=== PATIENT | female | born 1995 | race Two or more races ===

== ENCOUNTER 2018-03-26 05:45 | Emergency (ER) | payer MEDICAID ==
[2018-03-26 05:50] VITALS: BP 124/79
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
== END 2018-03-26 06:26 | disposition home or self-care (01) ==
DX: S62.332A Displaced fracture of neck of third metacarpal bone, right hand, initial encounter for closed fracture (principal); Y04.8XXA Assault by other bodily force, initial encounter; Y92.89 Other specified places as the place of occurrence of the external cause; Y99.8 Other external cause status; Y93.89 Activity, other specified

== ENCOUNTER 2018-07-27 18:59 | Emergency (ER) | payer MEDICAID ==
--- NOTE | 2018-07-27 19:25 | EDPHY ---
H & P Stated Complaint: Feverx5 days, generalized body aches, Time Seen by Provider: 07/27/18 19:24 HPI/ROS: HPI: This is a 23-year-old female who presents Chief Complaint: Feverx5 days, generalized body aches Location: body Quality: Fever Duration: 5 days Signs and Symptoms: + fever, no nausea, no vomiting, no diarrhea, no urinary symptoms, no chest pain, no shortness of breath, no wheezing, no cough, no sore throat, no neck stiffness, no joint pain, no swollen glands, no ear pain, no rash, + body aches, + fatigue Timing: Acute Severity: Moderate Context: Patient reports that she has had a fever for the last 5 days accompanied by generalized body aches and fatigue. She denies any cough, sore throat, swollen glands, neck stiffness, headache. She has been taking ibuprofen several times per day with no relief of her fever. She denies any foreign travel. Did not receive her influenza vaccine this year. Last took ibuprofen at 1200. Currently on her menses but denies any abdominal pain, nausea , vomiting, urinary symptoms, back pain, vaginal discharge. Modifying Factors: See above Comment: ROS: A comprehensive 10 system review of systems is otherwise negative aside from elements mentioned in the history of present illness. MEDICAL/SURGICAL/SOCIAL HISTORY: Medical history: Generally healthy. Does not take any regular medications. Surgical history: Denies Social history: Never smoked. Denies drug and alcohol use. Family history noncontributory. CONSTITUTIONAL: Ill but nontoxic-appearing, adult female, awake and alert, no obvious distress HEENT: Atraumatic and normocephalic, PERRL, EOMI. Nares patent; no rhinorrhea; no nasal mucosal edema. Tympanic membranes clear. Oropharynx clear, tonsils mild erythema; no hypertrophy; no exudate; uvula midline and dry oral mucosa. Airway patent. No lymphadenopathy. No meningismus. Cardiovascular: Normal S1/S2, tachycardia, regular rhythm, without murmur rub or gallop. PULMONARY/CHEST: Symmetrical and nontender. Clear to auscultation bilaterally. Good air movement. No accessory muscle usage. ABDOMEN: Soft, nondistended, nontender, no rebound, no guarding, no peritoneal signs, no masses or organomegaly. No CVAT. EXTREMITIES: 2/2 pulses, strength 5/5, no deformities, no clubbing, no cyanosis or edema. NEUROLOGICAL: no focal neuro deficits. GCS 15. SKIN: Warm and dry, no erythema. no rash. Good capillary refill. Source: Patient Exam Limitations: No limitations - Personal History LMP (Females 10-55): Now Current Tetanus Diphtheria and Acellular Pertussis (TDAP): No - Medical/Surgical History Hx Asthma: No Hx Chronic Respiratory Disease: No Hx Diabetes: No Hx Cardiac Disease: No Hx Renal Disease: No Hx Cirrhosis: No Hx Alcoholism: No Hx HIV/AIDS: No Hx Splenectomy or Spleen Trauma: No Other PMH: Denies - Social History Smoking Status: Never smoked Constitutional: Initial Vital Signs Temperature (C) 39.3 C H 07/27/18 19:03 Heart Rate 115 H 07/27/18 19:03 Respiratory Rate 20 07/27/18 19:03 Blood Pressure 116/96 H 07/27/18 19:03 O2 Sat (%) 97 07/27/18 19:03 O2 Delivery Mode Room Air Allergies/Adverse Reactions: No Known Allergies Allergy (Unverified 07/27/18 19:02) Medical Decision Making ED Course/Re-evaluation: Vital Signs reviewed and show fever, tachycardia upon arrival. IV access and laboratory studies ordered. Strep test negative and influenza negative Given 2 L normal saline and IV Toradol 30 mg No signs of meningitis/postpharyngeal abscess/strep pharyngitis/otitis media 2030: Labs reviewed. WBC 11 K, sodium 131, + normocytic anemia-currently menstruating, no acute kidney injury Lung sounds are clear with low yield for pneumonia. No urinary symptoms to indicate urinary tract infection Suspect viral syndrome and influenza like illness. Advised supportive care. Patient is immunocompetent and is not a candidate for Tamiflu Vital signs improved on discharge. This patient was seen under the supervision of my secondary supervising physician. I evaluated care for this patient independently. Discussed this patient with Dr. De La Cruz. Differential Diagnosis: Adult fever including but not limited to viral syndromes including influenza, urinary tract infection, pneumonia and sepsis. - Data Points Laboratory Results: Laboratory Results 07/27/18 19:45 07/27/18 19:45 07/27/18 07/27/18 07/27/18 Unknown 19:45 19:45 WBC RBC Hgb Hct MCV MCH MCHC RDW Plt Count MPV Neut % (Auto) Lymph % (Auto) [place] % (Auto) Eos % (Auto) Baso % (Auto) Nucleat RBC Rel Count Absolute Neuts (auto) Absolute Lymphs (auto) Absolute Monos (auto) Absolute Eos (auto) Absolute Basos (auto) Absolute Nucleated RBC Immature Gran % Immature Gran # Sodium Potassium Chloride Carbon Dioxide Anion Gap BUN Creatinine Estimated GFR Glucose Calcium Beta HCG, Qual NEGATIVE Nasal Influenza A PCR NEGATIVE FOR FLU A (NEGATIVE) Nasal Influenza B PCR NEGATIVE FOR FLU B (NEGATIVE) Group A Strep Screen Group A Strep DNA Pending 07/27/18 07/27/18 07/27/18 19:45 19:45 19:34 WBC 10.59 10^3/uL H 10^3/uL (3.80-9.50) RBC 3.70 10^6/uL L 10^6/uL (4.18-5.33) Hgb 10.7 g/dL L g/dL (12.6-16.3) Hct 32.2 % L % (38.0-47.0) MCV 87.0 fL fL (81.5-99.8) MCH 28.9 pg pg (27.9-34.1) MCHC 33.2 g/dL g/dL (32.4-36.7) RDW 14.9 % % (11.5-15.2) Plt Count 269 10^3/uL 10^3/uL (150-400) MPV 10.4 fL fL (8.7-11.7) Neut % (Auto) 77.2 % H % (39.3-74.2) Lymph % (Auto) 9.2 % L % (15.0-45.0) [place] % (Auto) 12.7 % % (4.5-13.0) Eos % (Auto) 0.1 % L % (0.6-7.6) Baso % (Auto) 0.3 % % (0.3-1.7) Nucleat RBC Rel Count 0.0 % % (0.0-0.2) Absolute Neuts (auto) 8.18 10^3/uL H 10^3/uL (1.70-6.50) Absolute Lymphs (auto) 0.97 10^3/uL L 10^3/uL (1.00-3.00) Absolute Monos (auto) 1.35 10^3/uL H 10^3/uL (0.30-0.80) Absolute Eos (auto) 0.01 10^3/uL L 10^3/uL (0.03-0.40) Absolute Basos (auto) 0.03 10^3/uL 10^3/uL (0.02-0.10) Absolute Nucleated RBC 0.00 10^3/uL 10^3/uL (0-0.01) Immature Gran % 0.5 % % (0.0-1.1) Immature Gran # 0.05 10^3/uL 10^3/uL (0.00-0.10) Sodium 131 mEq/L L mEq/L (135-145) Potassium 3.7 mEq/L mEq/L (3.3-5.0) Chloride 99 mEq/L mEq/L (97-110) Carbon Dioxide 24 mEq/l mEq/l (22-31) Anion Gap 8 mEq/L mEq/L (6-14) BUN 11 mg/dL mg/dL (7-23) Creatinine 0.6 mg/dL mg/dL (0.6-1.0) Estimated GFR > 60 Glucose 105 mg/dL H mg/dL (70-100) Calcium 8.3 mg/dL L mg/dL (8.5-10.4) Beta HCG, Qual Nasal Influenza A PCR Cancelled Nasal Influenza B PCR Cancelled Group A Strep Screen NEGATIVE (NEGATIVE) Group A Strep DNA Medications Given: Discontinued Medications Sodium Chloride (Ns) 1,000 mls @ 0 mls/hr IV EDNOW ONE; Wide Open PRN Reason: Protocol Stop: 07/27/18 19:37 Last Admin: 07/27/18 19:59 Dose: 1,000 mls Sodium Chloride (Ns) 1,000 mls @ 0 mls/hr IV EDNOW ONE; Wide Open PRN Reason: Protocol Stop: 07/27/18 19:37 Last Admin: 07/27/18 20:00 Dose: 1,000 mls Ketorolac Tromethamine (Toradol) 30 mg IVP EDNOW ONE Stop: 07/27/18 19:37 Last Admin: 07/27/18 20:01 Dose: 30 mg Departure - Departure Disposition: Home, Routine, Self-Care Clinical Impression: Influenza-like illness Condition: Good Instructions: Viral Syndrome (ED) Additional Instructions: Rest as much as possible until you are feeling better. Take Tylenol 650 mg every 4 hours and/or Ibuprofen 600 mg every 8 hours with food as needed for pain/fever. Consume a minimum of 8-10 glasses of water or electrolyte fluid replacement drinks that include Gatorade, Powerade, Pedialyte. Eat a bland diet for the next 48 hours and then slowly advance as tolerated. Follow-up with primary care provider in 3-4 days if no improvement. Referrals: [facility],. [Clinic] - As per Instructions Stand Alone Forms: Work Excuse
[2018-07-27] MEDS ORDERED: NS 1,000 ML IV ONE ×2 (19:36)
[2018-07-27] MEDS ORDERED: KETOROLAC 30 MG/1 ML SDV IVP ONE (19:36)
[2018-07-27 20:01] LABS: PLATELET COUNT 269 10^3/uL (150-400)
[2018-07-27 20:03] VITALS: BP 118/71
[2018-07-28 10:19] LABS: GROUP A STREP DNA (THROAT) POSITIVE (NEGATIVE)
== END 2018-07-27 21:06 | disposition home or self-care (01) ==
DX: R50.9 Fever, unspecified (principal); R52 Pain, unspecified; R53.83 Other fatigue; E86.9 Volume depletion, unspecified
CPT/HCPCS: 96374; J1885